=== PATIENT | male | born 1975 | race Caucasian/White ===

== ENCOUNTER 2019-08-05 17:13 | Emergency (ER) | payer BC ==
[~2019-08-05] VITALS: Ht 193 cm; Wt 115.7 kg
[2019-08-05] MEDS ORDERED: IV NORMAL SALINE 1000ML BAG 1,000 ML IV ONE ×2 (17:30→18:30)
--- NOTE | 2019-08-05 17:37 | PHYS DOC ---
Past Medical History Past Medical History: Seizure Past Surgical History: Other (BRAIN SURGERY TO REMOVE A TUMOR) Adult General HPI HPI Patient is a 44 year old L with history of brain tumor removal, history of seizure disorder. Patient is on Keppra 1000 mg twice a day. Patient was brought here by EMS after he had a seizure while he was sitting in the passenger side, going home. he did not take his Keppra last night or this morning. Patient went out last night, staying in hotel, then went to work from the hotel. He did not have his medication with him last night. Today while he was at work, he fell like he was going to have a seizure so he asked his boss to take him home. While on the way home he started having a seizure that his boss called EMS to take him here. He denies any abdominal pain, no nausea vomiting. aLL OTHER ros IS NEGATIVE UNLESS OTHERWISE NOTED IN hpi Review of Systems Review of Systems See above Current Medications Current Medications Current Medications Medications (Trade) Dose Ordered Sig/Bernie Start Time Stop Time Status Last Admin Dose Admin Levetiracetam 1500 mg/Dextrose 115 ml @ 440 mls/hr 1X ONCE 08/05/19 18:00 08/05/19 18:15 08/05/19 17:48 440 MLS/HR Sodium Chloride 1,000 ml @ 1,000 mls/hr 1X ONCE 08/05/19 18:30 08/05/19 19:29 Allergies Allergies Allergies Coded Allergies Type Severity Reaction Last Updated Verified No Known Drug Allergies 08/05/19 No Physical Exam Physical Exam See above Constitutional: Well developed, well nourished, no acute distress, non-toxic appearance. [] HENT: Normocephalic, atraumatic, bilateral external ears normal, oropharynx WAS DRIED, LEFT ANTERIOR TONGUE ABRASION , no oral exudates, nose normal. [] Eyes: PERRLA, EOMI, conjunctiva normal, no discharge. [] Neck: Normal range of motion, no tenderness, supple, no stridor. [] Cardiovascular: SINUS TACHYCARDIA, regular rhythm, no murmur [] Lungs & Thorax: Bilateral breath sounds clear to auscultation [] Abdomen: Bowel sounds normal, soft, no tenderness, no masses, no pulsatile ma sses. [] Skin: Warm, dry, no erythema, no rash. [] Back: No tenderness, no CVA tenderness. [] Extremities: No tenderness, no cyanosis, no clubbing, ROM intact, no edema. [] Neurologic: Alert and oriented X 3, normal motor function, normal sensory function, no focal deficits noted. [] Psychologic: Affect normal, judgement normal, mood normal. [] Current Patient Data Vital Signs Vital Signs Date Time Temp Pulse Resp B/P (MAP) Pulse Ox O2 Delivery O2 Flow Rate FiO2 08/05/19 17:14 98.4 134 18 124/86 (99) 97 Room Air 98.4 Lab Values Laboratory Tests Test 08/05/19 17:20 White Blood Count 24.7 x10^3/uL (4.0-11.0) H Red Blood Count 5.19 x10^6/uL (4.30-5.70) Hemoglobin 16.7 g/dL (13.0-17.5) Hematocrit 48.7 % (39.0-53.0) Mean Corpuscular Volume 94 fL (79-100) Mean Corpuscular Hemoglobin 32 pg (25-35) Mean Corpuscular Hemoglobin Concent 34 g/dL (31-37) Red Cell Distribution Width 12.4 % (11.5-14.5) Platelet Count 410 x10^3/uL (140-400) H Neutrophils (%) (Auto) 71 % (31-73) Lymphocytes (%) (Auto) 22 % (24-48) L Monocytes (%) (Auto) 7 % (0-9) Eosinophils (%) (Auto) 0 % (0-3) Basophils (%) (Auto) 0 % (0-3) Neutrophils # (Auto) 17.6 x10^3/uL (1.8-7.7) H Lymphocytes # (Auto) 5.3 x10^3/uL (1.0-4.8) H Monocytes # (Auto) 1.6 x10^3/uL (0.0-1.1) H Eosinophils # (Auto) 0.1 x10^3/uL (0.0-0.7) Basophils # (Auto) 0.1 x10^3/uL (0.0-0.2) Platelet Estimate Pending Sodium Level 141 mmol/L (136-145) Potassium Level 4.1 mmol/L (3.5-5.1) Chloride Level 101 mmol/L (98-107) Carbon Dioxide Level 15 mmol/L (21-32) L Anion Gap 25 (6-14) H Blood Urea Nitrogen 21 mg/dL (8-26) Creatinine 1.8 mg/dL (0.7-1.3) H Estimated GFR (Cockcroft-Gault) 41.2 BUN/Creatinine Ratio 12 (6-20) Glucose Level 139 mg/dL (70-99) H Calcium Level 9.2 mg/dL (8.5-10.1) Total Bilirubin 0.3 mg/dL (0.2-1.0) Aspartate Amino Transferase (AST) 31 U/L (15-37) Alanine Aminotransferase (ALT) 32 U/L (16-63) Alkaline Phosphatase 92 U/L (46-116) Creatine Kinase 274 U/L (39-308) Total Protein 8.3 g/dL (6.4-8.2) H Albumin 4.9 g/dL (3.4-5.0) Albumin/Globulin Ratio 1.4 (1.0-1.7) Ethyl Alcohol Level < 10 mg/dL (0-10) Laboratory Tests 08/05/19 17:20 Laboratory Tests 08/05/19 17:20 EKG EKG [] Radiology/Procedures Radiology/Procedures [] Course & Med Decision Making Course & Med Decision Making Pertinent Labs and Imaging studies reviewed. (See chart for details) Patient haD seizure episode today because he did not take his seizure medication. He is also dehydrated. Patient was given 2 L NS IV BOLUS, 1.5 GRAM KEPPRA IV. PATIENT WILL BE DISCHARGED HOME WITH HIS . Dragon Disclaimer Dragon Disclaimer This electronic medical record was generated, in whole or in part, using a voice recognition dictation system. Departure Departure Impression: Primary Impression: Seizure disorder Additional Impression: Dehydration Disposition: 01 HOME, SELF-CARE Condition: IMPROVED Patient Instructions: Dehydration, Adult, Seizure, Adult Problem Qualifiers ZANE REESE DO Aug 05, 2019 17:37
[2019-08-05 17:41] LABS: BASO # 0.1 x10^3/uL (0.0-0.2); BASO % 0 % (0-3); EOS # 0.1 x10^3/uL (0.0-0.7); EOS % 0 % (0-3); HEMATOCRIT 48.7 % (39.0-53.0); HEMOGLOBIN 16.7 g/dL (13.0-17.5); LYMPH # 5.3 x10^3/uL (1.0-4.8); LYMPH % 22 % (24-48); MEAN CORPUSCULAR HEMOGLOBIN 32 pg (25-35); MEAN CORPUSCULAR HGB CONC 34 g/dL (31-37); MEAN CORPUSCULAR VOLUME 94 fL (79-100); MONO # 1.6 x10^3/uL (0.0-1.1); MONO % 7 % (0-9); NEUT # 17.6 x10^3/uL (1.8-7.7); NEUT % 71 % (31-73); PLATELET COUNT 410 x10^3/uL (140-400); RED BLOOD COUNT 5.19 x10^6/uL (4.30-5.70); RED CELL DISTRIBUTION WIDTH 12.4 % (11.5-14.5); WHITE BLOOD COUNT 24.7 x10^3/uL (4.0-11.0)
[2019-08-05 17:52] LABS: CALCIUM 9.2 mg/dL (8.5-10.1); CREATININE 1.8 mg/dL (0.7-1.3); GFR 41.2; POTASSIUM 4.1 mmol/L (3.5-5.1)
[2019-08-05 17:59] LABS: ALBUMIN 4.9 g/dL (3.4-5.0); ALBUMIN/GLOBULIN RATIO 1.4 (1.0-1.7); TOTAL BILIRUBIN 0.3 mg/dL (0.2-1.0); TOTAL PROTEIN 8.3 g/dL (6.4-8.2)
[2019-08-05] MEDS ORDERED: levETIRAcetam 1,500 MG in IV DEXTROSE 5% 100ML 100 ML IV ONE (18:00)
[2019-08-05] MEDS ORDERED: IBUPROFEN 400 MG TABLET. PO ONE (18:30)
[2019-08-05 19:00] VITALS: BP 151/77
[2019-08-05 19:46] LABS: % ATYL 3 % (0-0); % BANDS 8 % (0-9); % LYMPHS 19 % (24-48); % MONOS 4 % (0-10); % SEGS 66 % (35-66); PLT ESTIMATE INCREASED (ADEQUATE)
== END 2019-08-05 19:04 | disposition home or self-care (01) ==
LOC: ER 17:13
DX: S00.512A Abrasion of oral cavity, initial encounter (principal); G40.909 Epilepsy, unspecified, not intractable, without status epilepticus; E86.0 Dehydration; Z98.890 Other specified postprocedural states; X58.XXXA Exposure to other specified factors, initial encounter; Y93.89 Activity, other specified; Y92.89 Other specified places as the place of occurrence of the external cause; Y99.8 Other external cause status
CPT/HCPCS: 36415; 80053; 82550; 85007; 85025; 96361; 96365; 99284; G0480; J1953; J7030